=== PATIENT | male | born 1995 | race Caucasian/White ===

== ENCOUNTER 2020-10-05 10:37 | Emergency (ER) | payer OTHER ==
[2020-10-05 10:44] VITALS: BP 116/72; PULSE 52; RESP 18; TEMP 98.7
[2020-10-05] MEDS ORDERED: LIDOCAINE 1% INJ 10MG/ML (20 ML MDV) SQ STA (11:15)
--- NOTE | 2020-10-05 11:45 | XR ---
3 views right finger INDICATION: Laceration base of finger No prior studies FINDINGS: No definite fracture or dislocation is seen. No definite radiopaque foreign body. There is irregulari ty of the medial soft tissues of the index finger at the level of the proximal phalanx which is consi stent with known laceration. IMPRESSION: Laceration without definite evidence of fracture, dislocation or radiopaque foreign body of the right index finger. Please note, not all foreign bodies are radiopaque.
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
== END 2020-10-05 12:30 | disposition home or self-care (01) ==
LOC: EC 10:37
DX: S61.220A Laceration with foreign body of right index finger without damage to nail, initial encounter (principal); F17.290 Nicotine dependence, other tobacco product, uncomplicated; W26.8XXA Contact with other sharp object(s), not elsewhere classified, initial encounter; Y92.89 Other specified places as the place of occurrence of the external cause; Y99.0 Civilian activity done for income or pay
CPT/HCPCS: 73140; 99283; 12042; J2001